=== PATIENT | male | born 1955 | race Caucasian/White ===

== ENCOUNTER 2022-09-04 06:00 | Day surgery (SDC) | payer BC ==
[2022-09-01 13:34] VITALS: BMI 34.4
[2022-09-04] MEDS ORDERED: Ketorolac Tromethamine 30 MG/ML VIAL ONE (06:30)
[2022-09-04] MEDS ORDERED: Acetaminophen 500 MG TAB ONE (06:30)
[2022-09-04] MEDS ORDERED: fentaNYL PF 100 MCG/2 ML SYRINGE ONE (06:42)
[2022-09-04] MEDS ORDERED: Bupivacaine HCl 0.5%/Epinephrine 1:200,000/PF 30 ml Vial ONE (06:44)
[2022-09-04] MEDS ORDERED: Famotidine/PF 20 mg/2ml Vial ONE (07:25)
[2022-09-04] MEDS ORDERED: Sodium Chloride 0.9% 100 ML ONE (07:33)
[2022-09-04] MEDS ORDERED: CEFAZOLIN 2 GM VIAL ONE (07:33)
[2022-09-04] MEDS ORDERED: SUGAMMADEX SODIUM 200 MG/2 ML VIAL ONE (07:39)
[2022-09-04] MEDS ORDERED: Ondansetron PF 4 MG/2 ML Vial ONE (07:53)
[2022-09-04] MEDS ORDERED: Lidocaine 1% PF 5 ML VIAL ONE (07:53)
[2022-09-04] MEDS ORDERED: Rocuronium Bromide 10 MG/ML (10ML VIAL) ONE (07:53)
[2022-09-04] MEDS ORDERED: PROPOFOL 200 MG/20 ML VIAL ONE (07:53)
[2022-09-04] MEDS ORDERED: Dexamethasone 20 MG/5 ML VIAL ONE (07:53)
[2022-09-04] MEDS ORDERED: hydrALAZINE 20 MG/ML VIAL ONE (10:01)
[2022-09-04] MEDS ORDERED: HYDROcodone/Acetaminophen 5/325 mg Tablet ONE (10:39)
== END 2022-09-04 11:20 | disposition home or self-care (01) ==
LOC: SDC 06:00
PROVIDERS: ATTEND Specialist
PROC: 0WUF4JZ Supplement Abdominal Wall with Synthetic Substitute, Percutaneous Endoscopic Approach (ICD-10-PCS; principal; 2022-09-04)
DX: K43.9 Ventral hernia without obstruction or gangrene (principal); I10 Essential (primary) hypertension; Z79.899 Other long term (current) drug therapy
CPT/HCPCS: C1713; J0360; J1100; J1885; J2405; J2704; J3490; S0028